=== PATIENT | female | born 2000 ===

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

== ENCOUNTER 2019-06-28 00:37 | Emergency (ER) | payer SELFPAY ==
[2019-06-28] MEDS ORDERED: TYLENOL PO ONE (04:21)
--- NOTE | 2019-06-28 04:52 | Emergency Department Report ---
ED Abdominal Pain HPI - General Chief Complaint: Abdominal Pain Stated Complaint: LUMP ON LT SIDE OF STOMACH Time Seen by Provider: 06/28/19 04:20 Source: patient Mode of arrival: Ambulatory Limitations: No Limitations - History of Present Illness Initial Comments: pt states that she checked in for left abd wall spasm after lift boxes at work, with 2/10 abdominal pain however "real reason was positive home test just want to make sure" there is no n/v no fever no chills no vaginal discharge , no vaginal bleeding , NO ABDOMINAL PAIN at this time MD Complaint: abdominal pain Onset/Timin -: days(s) Location: L flank Migration to: no migration Severity scale (0 -10): 0 Consistency: intermittent Improves With: nothing Worsens With: nothing Associated Symptoms: denies other symptoms - Related Data LMP Date: 05/22/19 Previous Rx's Medication Instructions Recorded Last Taken Type Ibuprofen [Motrin 600 MG tab] 600 mg PO Q8H PRN #20 tablet 07/14/16 Unknown Rx Ciprofloxacin HCl [Ciprofloxacin 500 mg PO Q12H #14 tab 04/28/18 Unknown Rx TAB] DOXYCYCLINE Hyclate [Vibramycin 100 mg PO Q12HR #14 capsule 04/28/18 Unknown Rx CAP] metroNIDAZOLE [Flagyl] 500 mg PO Q12HR #14 tab 04/28/18 Unknown Rx Doxycycline Hyclate [Vibramycin] 100 mg PO BID 14 Days #28 capsule 05/27/18 Unknown Rx Ibuprofen 800 mg PO TID PRN #30 tablet 10/31/18 Unknown Rx Nitrofurantoin Monohyd/M-Cryst 100 mg PO BID 7 Days #14 capsule 10/31/18 Unknown Rx [Macrobid 100 mg Capsule] Acetaminophen [Acetaminophen TAB] 650 mg PO Q6HR PRN #30 tablet 06/28/19 Unknown Rx Allergies Allergy/AdvReac Type Severity Reaction Status Date / Time No Known Allergies Allergy Verified 04/28/18 10:44 ED Review of Systems ROS: Stated complaint: LUMP ON LT SIDE OF STOMACH Other details as noted in HPI Constitutional: denies: chills, fever Eyes: denies: eye pain, eye discharge, vision change ENT: denies: ear pain, throat pain Respiratory: denies: cough, shortness of breath, wheezing Cardiovascular: denies: chest pain, palpitations Endocrine: no symptoms reported Gastrointestinal: abdominal pain. denies: nausea, vomiting, diarrhea, constipation, melena Genitourinary: denies: urgency, dysuria, discharge Musculoskeletal: denies: back pain, joint swelling, arthralgia Skin: denies: rash, lesions Neurological: denies: headache, weakness, paresthesias Psychiatric: denies: anxiety, depression Hematological/Lymphatic: denies: easy bleeding, easy bruising ED Past Medical Hx - Past Medical History Previous Medical History?: Yes Additional medical history: ovarian cyst - Surgical History Past Surgical History?: No - Social History Smoking Status: Never Smoker Substance Use Type: Marijuana - Medications Home Medications: Home Medications Medication Instructions Recorded Confirmed Last Taken Type Ibuprofen [Motrin 600 MG tab] 600 mg PO Q8H PRN #20 tablet 07/14/16 Unknown Rx Ciprofloxacin HCl [Ciprofloxacin 500 mg PO Q12H #14 tab 04/28/18 Unknown Rx TAB] DOXYCYCLINE Hyclate [Vibramycin 100 mg PO Q12HR #14 capsule 04/28/18 Unknown Rx CAP] metroNIDAZOLE [Flagyl] 500 mg PO Q12HR #14 tab 04/28/18 Unknown Rx Doxycycline Hyclate [Vibramycin] 100 mg PO BID 14 Days #28 capsule 05/27/18 Unknown Rx Ibuprofen 800 mg PO TID PRN #30 tablet 10/31/18 Unknown Rx Nitrofurantoin Monohyd/M-Cryst 100 mg PO BID 7 Days #14 capsule 10/31/18 Unknown Rx [Macrobid 100 mg Capsule] Acetaminophen [Acetaminophen TAB] 650 mg PO Q6HR PRN #30 tablet 06/28/19 Unknown Rx ED Physical Exam - General Limitations: No Limitations General appearance: alert, in no apparent distress - Head Head exam: Present: atraumatic, normocephalic - Eye Eye exam: Present: normal appearance, PERRL Pupils: Present: normal accommodation - ENT ENT exam: Present: mucous membranes moist - Neck Neck exam: Present: normal inspection, full ROM. Absent: tenderness - Respiratory Respiratory exam: Present: normal lung sounds bilaterally. Absent: respiratory distress, wheezes, stridor, chest wall tenderness - Cardiovascular Cardiovascular Exam: Present: regular rate, normal rhythm, normal heart sounds. Absent: systolic murmur, diastolic murmur, rubs, gallop - GI/Abdominal GI/Abdominal exam: Present: soft, normal bowel sounds. Absent: distended, tenderness, guarding, rebound, rigid, bruit, hernia - Rectal Rectal exam: Present: deferred - External exam: Present: other (exam deferred per patient ) - Extremities Exam Extremities exam: Present: normal inspection, full ROM, normal capillary refill. Absent: tenderness, pedal edema, joint swelling, calf tenderness - Back Exam Back exam: Present: normal inspection, full ROM. Absent: tenderness, CVA tenderness (R), CVA tenderness (L), muscle spasm, paraspinal tenderness, vertebral tenderness, rash noted - Neurological Exam Neurological exam: Present: alert, oriented X3, CN II-XII intact, normal gait, reflexes normal. Absent: motor sensory deficit - Psychiatric Psychiatric exam: Present: normal affect, normal mood - Skin Skin exam: Present: warm, dry, intact, normal color. Absent: rash ED Medical Decision Making - Medical Decision Making Ther is a e is no vaginal bleeding, no vaginal discharge, no abd cramping, no abd tenderness , no n/v no back pain no abd pain no dizziness no lightheadedness no sob no symptoms of , hcg serum : , pt will follow up with OBGYN, will return to emergency if symptoms worsen. Vital signs at this time: T: 98.1, hr: 105, O2 sat: 100% room air, bp: 122/78, ht: 5' 7", wt: 61.96 kg Critical care attestation.: If time is entered above; I have spent that time in minutes in the direct care of this critically ill patient, excluding procedure time. ED Disposition Clinical Impression: Abdominal spasms, test negative Disposition: TO HOME OR SELFCARE Is pt being admited?: No Does the pt Need Aspirin: No Condition: Stable Instructions: Abdominal Pain (ED) Prescriptions: Acetaminophen [Acetaminophen TAB] 650 mg PO Q6HR PRN #30 tablet PRN Reason: Pain Referrals: SHARRON NOVA MD [Staff Physician] - 3-5 Days Forms: Work/School Release Form(ED) Time of Disposition: 05:57
== END 2019-06-28 06:10 | disposition home or self-care (01) ==
LOC: ED 00:37
DX: M62.838 Other muscle spasm (principal); F12.10 Cannabis abuse, uncomplicated; Z79.899 Other long term (current) drug therapy; Z32.02 Encounter for pregnancy test, result negative
CPT/HCPCS: 36415; 84702

== ENCOUNTER 2021-10-07 20:25 | Emergency (ER) | payer SELFPAY ==
[2021-10-07 21:32] VITALS: BP 154/96
--- NOTE | 2021-10-07 22:15 | Emergency Department Report ---
ED General Adult HPI - General Chief complaint: Urogenital-Female Stated complaint: VAGINAL DISCHARGE Time Seen by Provider: 10/07/21 22:09 Source: patient Mode of arrival: Ambulatory Limitations: No Limitations - History of Present Illness Initial comments: Patient 21-year-old female who recently vaginal discharge dyspareunia x3 days. Symptoms are exacerbated by sex relieved by nothing tried. Last menstrual cycle 1 month ago. Patient denies fevers or chills there is no abdominal pain no back pain no nausea or vomiting. Discharge described as white malodorous. - Related Data Previous Rx's Medication Instructions Recorded Last Taken Type Ibuprofen [Motrin 600 MG tab] 600 mg PO Q8H PRN #20 tablet 07/14/16 Unknown Rx Ciprofloxacin HCl [Ciprofloxacin 500 mg PO Q12H #14 tab 04/28/18 Unknown Rx TAB] DOXYCYCLINE Hyclate [Vibramycin 100 mg PO Q12HR #14 capsule 04/28/18 Unknown Rx CAP] metroNIDAZOLE [Flagyl] 500 mg PO Q12HR #14 tab 04/28/18 Unknown Rx Doxycycline Hyclate [Vibramycin] 100 mg PO BID 14 Days #28 capsule 05/27/18 Unknown Rx Ibuprofen 800 mg PO TID PRN #30 tablet 10/31/18 Unknown Rx Nitrofurantoin Monohyd/M-Cryst 100 mg PO BID 7 Days #14 capsule 10/31/18 Unknown Rx [Macrobid 100 mg Capsule] Acetaminophen [Acetaminophen TAB] 650 mg PO Q6HR PRN #30 tablet 06/28/19 Unknown Rx cephALEXin [Keflex] 500 mg PO Q12HR 7 Days #14 cap 10/08/21 Unknown Rx metroNIDAZOLE [Flagyl] 500 mg PO Q12HR 7 Days #14 tab 10/08/21 Unknown Rx Allergies Allergy/AdvReac Type Severity Reaction Status Date / Time No Known Allergies Allergy Verified 04/28/18 10:44 ED Review of Systems ROS: Stated complaint: VAGINAL DISCHARGE Other details as noted in HPI Constitutional: denies: chills, fever Eyes: denies: eye pain, eye discharge, vision change ENT: denies: ear pain, throat pain Respiratory: denies: cough, shortness of breath, wheezing Cardiovascular: denies: chest pain, palpitations Endocrine: no symptoms reported Gastrointestinal: denies: abdominal pain, nausea, vomiting, diarrhea Genitourinary: discharge, dyspareunia. denies: urgency, dysuria, frequency, hematuria Musculoskeletal: as per HPI. denies: back pain Skin: denies: rash, lesions Neurological: denies: headache, weakness, paresthesias Psychiatric: denies: anxiety, depression Hematological/Lymphatic: denies: easy bleeding, easy bruising ED Past Medical Hx - Past Medical History Previous Medical History?: Yes Additional medical history: ovarian cyst - Surgical History Past Surgical History?: No - Social History Smoking Status: Never Smoker Substance Use Type: Marijuana - Medications Home Medications: Home Medications Medication Instructions Recorded Confirmed Last Taken Type Ibuprofen [Motrin 600 MG tab] 600 mg PO Q8H PRN #20 tablet 07/14/16 Unknown Rx Ciprofloxacin HCl [Ciprofloxacin 500 mg PO Q12H #14 tab 04/28/18 Unknown Rx TAB] DOXYCYCLINE Hyclate [Vibramycin 100 mg PO Q12HR #14 capsule 04/28/18 Unknown Rx CAP] metroNIDAZOLE [Flagyl] 500 mg PO Q12HR #14 tab 04/28/18 Unknown Rx Doxycycline Hyclate [Vibramycin] 100 mg PO BID 14 Days #28 capsule 05/27/18 Unknown Rx Ibuprofen 800 mg PO TID PRN #30 tablet 10/31/18 Unknown Rx Nitrofurantoin Monohyd/M-Cryst 100 mg PO BID 7 Days #14 capsule 10/31/18 Unkn own Rx [Macrobid 100 mg Capsule] Acetaminophen [Acetaminophen TAB] 650 mg PO Q6HR PRN #30 tablet 06/28/19 Unknown Rx cephALEXin [Keflex] 500 mg PO Q12HR 7 Days #14 cap 10/08/21 Unknown Rx metroNIDAZOLE [Flagyl] 500 mg PO Q12HR 7 Days #14 tab 10/08/21 Unknown Rx ED Physical Exam - General Limitations: No Limitations General appearance: alert, in no apparent distress - Head Head exam: Present: atraumatic, normocephalic - Eye Eye exam: Present: normal appearance, EOMI Pupils: Present: normal accommodation - ENT ENT exam: Present: mucous membranes moist - Neck Neck exam: Present: normal inspection, full ROM. Absent: tenderness - Respiratory Respiratory exam: Present: normal lung sounds bilaterally. Absent: respiratory distress, wheezes - Cardiovascular Cardiovascular Exam: Present: regular rate, normal rhythm, normal heart sounds. Absent: systolic murmur, diastolic murmur, rubs, gallop - GI/Abdominal GI/Abdominal exam: Present: soft, normal bowel sounds. Absent: distended, tende rness, guarding, rebound, rigid, bruit, hernia - Rectal Rectal exam: Present: deferred - External exam: Present: normal external exam Speculum exam: Present: erythema, vaginal discharge. Absent: cervical discharge, vaginal bleeding (White thick malodorous), foreign body, tissue, laceration Bi-manual exam: Absent: cervical motion tendernes - Extremities Exam Extremities exam: Present: normal inspection, full ROM, normal capillary refill. Absent: tenderness - Back Exam Back exam: Present: normal inspection, full ROM. Absent: CVA tenderness (R), CVA tenderness (L) - Neurological Exam Neurological exam: Present: alert, oriented X3, CN II-XII intact, normal gait - Psychiatric Psychiatric exam: Present: normal affect, normal mood - Skin Skin exam: Present: warm, dry, intact, normal color. Absent: rash ED Course Vital Signs 10/07/21 21:27 Temperature 98.0 F Pulse Rate 70 Respiratory 18 Rate Blood Pressure 154/96 O2 Sat by Pulse 100 Oximetry ED Medical Decision Making - Lab Data Labs 10/07/21 10/07/21 23:01 23:03 HCG, Qual Negative Urine Color Yellow Urine Turbidity Clear Urine pH 7.0 Ur Specific [place] 1.017 Urine Protein <15 mg/dl Urine Glucose (UA) Neg Urine Ketones Neg Urine Blood Sm Urine Nitrite Neg Urine Bilirubin Neg Urine Urobilinogen 2.0 Ur Leukocyte Esterase Mod Urine WBC (Auto) 34.0 H Urine RBC (Auto) 14.0 U Epithel Cells (Auto) 4.0 Urine Mucus Few Urine Yeast (Budding) 1+ - Medical Decision Making Wet prep consistent with BV, UA noted for leukocytes bacteria. Plan treat for BV. UTI, patient will follow up with primary care doctor in 2 to 3 days. Patient wishes to wait GC chlamydia return before treatment for STI patient will follow up in 2 to 3 days for same. Follow-up with health department for HIV and HSV screening. Patient verbalized agreement and understanding with manda mon plan. Patient DC'd home in stable condition at this time. Critical care attestation.: If time is entered above; I have spent that time in minutes in the direct care o f this critically ill patient, excluding procedure time. ED Disposition Clinical Impression: Bacterial vaginosis UTI (urinary tract infection) Qualifiers: Urinary tract infection type: acute cystitis Hematuria presence: without hematuria Qualified Code(s): N30.00 - Acute cystitis without hematuria Disposition: HOME / SELF CARE / HOMELESS Is pt being admited?: No Does the pt Need Aspirin: No Condition: Stable Instructions: Bacterial Vaginosis (ED), Bacterial Vaginosis, Urinary Tract Infection, Adult, [id number] Additional Instructions: Take medications as prescribed, follow-up with your doctor in 2 to 3 days. Do not drink alcohol with Flagyl as it will cause severe abdominal upset. Return to emergency department should symptoms worsen. Prescriptions: metroNIDAZOLE [Flagyl] 500 mg PO Q12HR 7 Days #14 tab cephALEXin [Keflex] 500 mg PO Q12HR 7 Days #14 cap Referrals: ROGE MUNOZ JR, MD [Staff Physician] - 3-5 Days Forms: STI Treatment and Prevention, Work/School Release Form(ED) Time of Disposition: 00:25
[2021-10-07 23:35] LABS: Bilirubin,Urine NEG (Negative); Blood,Urine SM (Negative); Color,Urine Yellow (Yellow); Mucus,Urine FEW /HPF; Protein,Urine <15 mg/dL mg/dL (Negative)
== END 2021-10-08 00:46 | disposition home or self-care (01) ==
LOC: ED 20:25
DX: N76.0 Acute vaginitis (principal); N39.0 Urinary tract infection, site not specified; F12.90 Cannabis use, unspecified, uncomplicated
CPT/HCPCS: 36415; 81001; 84703; 87086; 87210; 87591; 99284

== ENCOUNTER 2021-11-04 04:17 | Emergency (ER) | payer SELFPAY ==
[2021-11-04 04:32] VITALS: BP 104/70
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
== END 2021-11-04 07:20 | disposition home or self-care (01) ==
LOC: ED 04:17
DX: S16.1XXA Strain of muscle, fascia and tendon at neck level, initial encounter (principal); S09.90XA Unspecified injury of head, initial encounter; F12.90 Cannabis use, unspecified, uncomplicated; Z79.899 Other long term (current) drug therapy; V87.7XXA Person injured in collision between other specified motor vehicles (traffic), initial encounter; Y93.89 Activity, other specified; Y92.488 Other paved roadways as the place of occurrence of the external cause; Y99.8 Other external cause status
CPT/HCPCS: 70450; 72125; 99283